=== PATIENT | female | born 1950 | race Caucasian/White ===

== ENCOUNTER 2016-11-25 20:00 | Emergency (ER) | payer MEDICARE, OTHER ==
[~2016-11-25] VITALS: Ht 172.7 cm; Wt 109.5 kg
[2016-11-25 20:04] VITALS: Ht 172.7 cm; Wt 109.5 kg
--- OUTSIDE RECORDS SUMMARY | 2016-11-25 20:05 | XMS REPORT ---
Author Author Bonifacio Cedillo Organization [employer] Address Unknown Phone Unavailable Care Team Providers Care Special Police Officer Name Role Phone Bonifacio Cedillo CP Unavailable Allergies No Known Allergies Problems Problem Type Condition ICD-9 Code Onset Dates Condition Status Problem Sleep Apnea 780.57 Active Problem Hypertension 401.9 Active Problem Murmur 785.2 Active Problem Diabetes Mellitus, Type II, Not Stated As Uncontrolled 250.00 Active Problem Atrial fibrillation 427.31 Active Problem Dyslipidemia 272.4 Active Medications No Known Medications Results No Known Results Summary Purpose [employer]Clinical[employer] Submission
--- OUTSIDE RECORDS SUMMARY | 2016-11-25 20:05 | XMS REPORT ---
Author Author Bonifacio Cedillo Organization [employer] Address Unknown Phone Unavailable Care Team Providers Care Recreation Worker Name Role Phone Bonifacio Cedillo CP Unavailable [...]
--- OUTSIDE RECORDS SUMMARY | 2016-11-25 20:05 | XMS REPORT ---
Author Author Bonifacio Cedillo Organization [employer] Address Unknown Phone Unavailable Care Team Providers Care Pharmaceutical Detailer Name Role Phone Bonifacio Cedillo CP Unavailable [...]
--- OUTSIDE RECORDS SUMMARY | 2016-11-25 20:05 | XMS REPORT | Continuity of Care Document ---
Author Author [facility] Organization [facility] Address Unknown Phone Unavailable Allergies Active Description Code Type Severity Reaction Onset Reported/Identified Relationship to Patient Clinical Status Yes Darvon Drug Allergy itch 04/24/2012 Yes Darvon Drug Allergy N/A itch 04/24/2012 Yes Nickel Drug Allergy rash 04/24/2012 Yes Nickel Drug Allergy N/A rash 04/24/2012 Medications Problems Date Dx Coded Attending Type Code Diagnosis Diagnosed By 04/24/2012 Andrew Albert MD Final 278.01 MORBID OBESITY 04/24/2012 Andrew Albert MD Final V72.63 PRE-PX LABORATORY EXAM 04/24/2012 Andrew Albert MD Final V72.81 PREOP CV EXAM 04/30/2012 Andrew Albert MD Final 250.01 DM1 UNCOMP NSU 04/30/2012 Andrew Albert MD Final 278.01 MORBID OBESITY 04/30/2012 Andrew Albert MD Final 327.23 OBSTRUCTIVE SLEEP APNEA 04/30/2012 Andrew Albert MD Final 401.9 HYPERTENSION NOS 04/30/2012 Andrew Albert MD Final 530.81 ESOPHAGEAL REFLUX 04/30/2012 Andrew Albert MD Final 998.11 HEMORRHAGE COMP PX 04/30/2012 Andrew Albert MD External E878.8 ABN RXN-SURGICAL PX NEC 04/30/2012 Andrew Albert MD Final V06.6 STREP PNEUM FLU VACC 04/30/2012 Andrew Albert MD Final V85.42 BMI 45.0-49.9 ADULT 01/10/2013 Jeffrey Soler DO Final 250.00 DM2/NOS UNCOMP NSU 01/10/2013 Jeffrey Soler DO Final 382.9 OTITIS MEDIA NOS 01/10/2013 Jeffrey Soler DO Final 401.9 HYPERTENSION NOS 01/10/2013 Jeffrey Soler DO Final 414.00 COR -GRAFT TYPE NOS 01/10/2013 Jeffrey Soler DO Final 465.9 ACUTE URI NOS 01/10/2013 Jeffrey Soler DO Final 473.9 CHRONIC SINUSITIS NOS 01/10/2013 Jeffrey Soler DO Admitting 786.2 COUGH Procedures Code Description Performed By Performed On 44.38 LAPSCP GASTROENTEROSTOMY Andrew Albert MD 04/30/2012 Results Encounters ACCT No. Visit Date/Time Discharge Status Pt. Type Provider Facility Loc./Unit Complaint [id number] 01/10/2013 11:05:00 2012 12:50:00 DIS Emergency Jeffrey Soler DO [facility] FERM [id number] 04/30/2012 05:10:00 2011 15:25:00 DIS Inpatient Andrew Albert MD [facility] F8SE [id number] 04/24/2012 08:57:00 2011 23:59:59 CLS Outpatient Andrew Albert MD [facility] FO
--- OUTSIDE RECORDS SUMMARY | 2016-11-25 20:05 | XMS REPORT ---
Author Bonifacio White [facility] [employer] Address Unknown Phone Unavailable Care Team Providers Care Assembly Loader Name Role Phone Bonifacio Cedillo CP Unavailable Allergies, Adverse Reactions, Alerts Substance Reaction Event Type Darvon Info Not Available Drug Allergy Problems Problem Type Condition ICD-9 Code Onset Dates Condition Status Assessment Diabetes Mellitus, Type II, Not Stated As Uncontrolled 250.00 Active Assessment Murmur 785.2 Active Assessment Dyslipidemia 272.4 Active Problem Sleep Apnea 780.57 Active Problem Hypertension 401.9 Active Problem Murmur 785.2 Active Problem Diabetes Mellitus, Type II, Not Stated As Uncontrolled 250.00 Active Assessment Atrial fibrillation 427.31 Active Problem Atrial fibrillation 427.31 Active Problem Dyslipidemia 272.4 Active Assessment Sleep Apnea 780.57 Active Assessment Hypertension 401.9 Active Assessment Long-term anticoagulant (Coumadin) therapy V58.63 Active Medications Medication Code System Code Instructions Start Date End Date Status Dosage multivitamin NDC 0 po bid 2 tab Insulin NDC 0 as dir as dir Sotalol HCl [facility] [address]-05 80 MG Orally bdid 1/2 [place] [address]-53 10 MG Orally qd 1 [place] [address]-46 75 MCG Orally qd 1 tablet Citracal + D NDC 0 qd 3 tabs Amlodipine Besy-Benazepril HCl [facility] [address]-84 5-20 MG Orally qd 1 [place] [address]-00 75-50 MG Orally qd 1/[address] [place] [address]-11 81 MG Orally Once a day January 12, 2015 1 tablet Procedures Procedure Coding System Code Date Office Visit, Est Pt., Level 4 CPT-4 88029 January 12, 2015 ELECTROCARDIOGRAM, COMPLETE CPT-4 51103 January 12, 2015 Vital Signs Date/Time: January 12, 2015 BMI 35.48 Index Weight 233.4 lbs Height 68 in Cardiac Monitoring Heart Rate 69 /min Oximetry 98%RA % Blood Pressure Diastolic 70 mm Hg Blood Pressure Systolic 124 mm Hg Results No Known Results Summary Purpose eClinicalWorks Submission
--- OUTSIDE RECORDS SUMMARY | 2016-11-25 20:05 | XMS REPORT ---
Author Author Bonifcaio Cedillo Organization [employer] Address Unknown Phone Unavailable Care Team Providers Care Nursing Admin Name Role Phone Bonifacio Cedillo CP Unavailable [...]
--- OUTSIDE RECORDS SUMMARY | 2016-11-25 20:05 | XMS REPORT ---
Author Author [place], [facility] - Organization Unknown Address Unknown Phone Unavailable Allergies, Adverse Reactions, Alerts * Nickel causes rash. * Darvon causes itch. * No Latex Allergy. * No IV Contrast Allergy. Problems * Acute Pain* Status:Active. * Deep Vein Thrombosis Risk* Status:Active. * Diabetes Mellitus* Status:Active. * Knowledge of Therapeutic Regimen Low Level* Status:Active. * Morbid Obesity* Status:Resolved. * Nutritional Assessment* Status:Active. * Skin Integrity Impairment* Status:Active. * Tissue Perfusion Impairment* Status:Resolved. * Urinary System Process Impairment* Status:Resolved. Procedures No relevant procedures performed. Medication Medication reconciliation has not been performed. Results LAB--BEDSIDE TESTING from 01/10/2013 11:21 AMGlucose NPT 203 mg/dL H (70-100 mg/ dL)
--- OUTSIDE RECORDS SUMMARY | 2016-11-25 20:05 | XMS REPORT ---
Author Author Bonifacio Cedillo [facility] e[employer] Address Unknown Phone Unavailable Care Team Providers Care Shrimp Peeler Name Role Phone Bonifacio Cedillo CP Unavailable Allergies, Adverse Reactions, Alerts Substance Reaction Event Type Sotalol HCl marked bradycardia Drug Allergy Darvon Info Not Available Drug Allergy Problems Problem Type Condition Code Onset Dates Condition Status Assessment Bradycardia R00.1 Active Problem Diabetes Mellitus, Type II, Not Stated As Uncontrolled 250.00 Active Assessment Hypertension I10 Active Assessment Sleep apnea in adult G47.33 Active Assessment Atrial fibrillation I48.91 Active Problem Bradycardia R00.1 Active Problem Atrial fibrillation I48.91 Active Problem Hypertension I10 Active Problem Hypertension 401.9 Active Problem Dyslipidemia 272.4 Active Problem Sleep apnea in adult G47.33 Active Problem Murmur 785.2 Active Medications Medication Code System Code Instructions Start Date End Date Status Dosage Aspirin [facility] [address]-40 81 MG Orally Once a day January 12, 2015 1 tablet multivitamin NDC 0 po bid 2 [place] [address] Orally bid 2 tabs Norvasc [facility] [address]-34 5 MG Orally Once a day Apr 19, 2015 1 [place] [address]-10 500-25 MG Orally prn 1 tab Insulin NDC 0 [place] dir [place] [address] Orally 2669mg qd 4 tabs Hair/[place] [address] Orally bid 1 [place] [address]-07 20-12.5 MG Orally bid 1 tab Citracal + D NDC 0 qd 3 [place] [address] Orally qd 2 [place] [address] 500 MG Orally qd 1 [place] [address]-56 25 MG Orally bid 1 tablet Levothroid NDC 0 75 MCG Orally bid 1/2 [place] [address]-89 750 MG Orally Once a day 1 tablet with evening meal Procedures Procedure Coding System Code Date Office Visit, Est Pt., Level 4 CPT-4 69766 Apr 15, 2015 Vital Signs Date/Time: Apr 15, 2015 BMI 36.03 Index Weight 237 lbs Height 68 in Cardiac Monitoring Heart Rate 77 /min Oximetry 97%RA % Blood Pressure Diastolic 80 mm Hg Blood Pressure Systolic 160 mm Hg Results No Known Results Summary Purpose eClinicalWorks Submission
--- OUTSIDE RECORDS SUMMARY | 2016-11-25 20:05 | XMS REPORT ---
Author Bonifacio White [facility] e[employer] Address Unknown Phone Unavailable Care Team Providers Care Pan Pusher Name Role Phone Bonifacio Cedillo CP Unavailable Allergies No Known Allergies Problems Problem Type Condition Code Onset Dates Condition Status Assessment Dyslipidemia 272.4 Active Assessment Hypertension 401.9 Active Assessment Murmur 785.2 Active Problem Sleep Apnea 780.57 Active Problem Hypertension 401.9 Active Problem Murmur 785.2 Active Problem Diabetes Mellitus, Type II, Not Stated As Uncontrolled 250.00 Active Assessment Atrial fibrillation 427.31 Active Problem Atrial fibrillation 427.31 Active Problem Dyslipidemia 272.4 Active Assessment Sleep Apnea 780.57 Active Assessment Long-term anticoagulant (Coumadin) therapy V58.63 Active Assessment Diabetes Mellitus, Type II, Not Stated As Uncontrolled 250.00 Active Medications Medication Code System Code Instructions Start Date End Date Status Dosage Aspirin [facility] [address]-09 81 MG Orally Once a day January 12, 2015 1 tablet Tylenol PM Extra Strength [facility] [address]-74 500-25 MG Orally prn 1 tab multivitamin NDC 0 po bid 2 tab Levothroid [facility] [address]-76 75 MCG Orally qd 1 [place] [address]-99 20-12.5 MG Orally Once a day 1 [place] [address] 500 MG Orally qd 1 [place] [address] [place] [address] Orally 2669mg qd not defined Insulin NDC 0 as dir [place] [address]-97 25 MG Orally Twice a day 1 tablet Citracal + D NDC 0 qd 3 [place] [address]-97 750 MG Orally Once a day 1 tablet with [place] [address] Orally qd 2 tablets Procedures Procedure Coding System Code Date Office Visit, Est Pt., Level 4 CPT-4 93648 Mar 02, 2015 ELECTROCARDIOGRAM, COMPLETE CPT-4 90898 Mar 02, 2015 Vital Signs Date/Time: Mar 02, 2015 BMI 36.34 Index Weight 239 lbs Height 68 in Cardiac Monitoring Heart Rate 54 /min Oximetry 99% % Blood Pressure Diastolic 90 mm Hg Blood Pressure Systolic 150 mm Hg Results No Known Results Summary Purpose eClinicalWorks Submission
--- OUTSIDE RECORDS SUMMARY | 2016-11-25 20:05 | XMS REPORT ---
Author Bonifacio White [facility] eClinicalWorks Address Unknown Phone Unavailable Care Team Providers Care Button Attaching Machine Operator Name Role Phone Bonifacio Cedillo CP Unavailable [...] Instructions Start Date End Date Status Dosage Hair/Skin/Nails [facility] [address] Orally bid 1 tab Glucosamine Chondroitin [facility] [address] Orally qd 2 tablets Metoprolol Tartrate [facility] [address]-20 25 MG Orally bid 1 [place] [address] 500 MG Orally qd 1 Bariatric Fusion [facility] [address] Orally bid 2 tabs Citracal + D NDC 0 qd 3 tabs MetFORMIN HCl ER [facility] [address]-00 750 MG Orally Once a day 1 tablet with evening meal Norvasc [facility] [address]-39 5 MG Orally Once a day Apr 19, 2015 1 tablet Aspirin [facility] [address]-41 81 MG Orally Once a day January 12, 2015 1 tablet Lisinopril-Hydrochlorothiazide [facility] [address]-58 20-12.5 MG Orally qday 2 tab Levothroid NDC 0 75 MCG Orally once a day 1 [place] [address] [place] [address] Orally 2669mg qd 4 [place] [address]-29 500-25 MG Orally prn 1 tab Insulin NDC 0 as dir as dir Procedures Procedure Coding System Code Date Office Visit, Est Pt., Level 4 CPT-4 17827 May 18, 2015 ELECTROCARDIOGRAM, COMPLETE CPT-4 40563 May 18, 2015 Vital Signs Date/Time: May 18, 2015 BMI 35.58 Index Weight 234 lbs Height 68 in Cardiac Monitoring Heart Rate 58 /min Oximetry 96% % Blood Pressure Diastolic 70 mm Hg Blood Pressure Systolic 140 mm Hg Results No Known Results Summary Purpose eClinicalWorks Submission
--- NOTE | 2016-11-25 20:13 | NUR ---
IV IV ATTEMPTS X2 UNSUCCESSFUL BY THIS RN
--- OUTSIDE RECORDS SUMMARY | 2016-11-25 20:22 | XMS REPORT ---
Author Author [place], [facility] - Organization Unknown Address Unknown [...]
--- OUTSIDE RECORDS SUMMARY | 2016-11-25 20:22 | XMS REPORT | Continuity of Care Document ---
Author Author [facility] Organization [facility] Address Unknown Phone Unavailable Allergies Active [...] Status Pt. Type Provider Facility Loc./Unit Complaint [id number] 01/10/2013 11:05:00 2012 12:50:00 DIS Emergency Jeffrey Soler DO [facility] FERM [id number] 04/30/2012 05:10:00 2011 15:25:00 DIS Inpatient Andrew Albert MD [facility] F8SE [id number] 04/24/2012 08:57:00 2011 23:59:59 CLS Outpatient Andrew Albert MD [facility] FO
[2016-11-25] MEDS ORDERED: NORMAL SALINE 1,000 ML IV ONE (20:24)
[2016-11-25] MEDS ORDERED: LEVO75TA10 PO (20:29)
[2016-11-25] MEDS ORDERED: METF750T2 PO (20:30)
[2016-11-25] MEDS ORDERED: ONDANSETRON 4mg/2ml INJECTION IV ONE (20:30)
[2016-11-25] MEDS ORDERED: [UNRECOGNIZED DRUG - CODE] PO (20:31)
[2016-11-25] MEDS ORDERED: METO-277 PO (20:31)
[2016-11-25] MEDS ORDERED: LISI1TAB11 PO (20:32)
[2016-11-25] MEDS ORDERED: [UNRECOGNIZED DRUG - OTHER] PO (20:33)
[2016-11-25] MEDS ORDERED: [UNRECOGNIZED DRUG - OTHER] PO (20:34)
[2016-11-25] MEDS ORDERED: INSU100V SQ (20:35)
[2016-11-25] MEDS ORDERED: OMEG1CAP82 PO (20:36)
[2016-11-25] MEDS ORDERED: GLUC-235 PO (20:37)
[2016-11-25] MEDS ORDERED: ASPI81TA2 PO (20:37)
[2016-11-25] MEDS ORDERED: INSU100V8 SQ (20:38)
[2016-11-25 20:40] LABS: ALBUMIN 3.7 G/DL (3.5-5.0); ALBUMIN/GLOBULIN RATIO 1.7 RATIO (1.1-2.2); ALKALINE PHOSPHATASE 74 U/L (38-126); ALT (SGPT) 38 U/L (9-52); ANION GAP 15 MEQ/L (5-15); AST (SGOT) 18 U/L (14-36); BUN/CREATININE RATIO 30 RATIO (6-26); CALCIUM 8.4 MG/DL (8.4-10.2); CHLORIDE 103 MEQ/L (98-107); CO2 - CARBON DIOXIDE 24 MEQ/L (22-30); CREATININE 0.9 MG/DL (0.7-1.2); GLOMERULAR FILTRATION RATE 62; GLUCOSE 310 MG/DL (65-110); LIPASE 25 U/L (23-300); POTASSIUM 3.7 MEQ/L (3.6-5); SODIUM 142 MEQ/L (134-144); TOTAL PROTEIN 5.9 G/DL (6.3-8.2)
[2016-11-25] MEDS ORDERED: [UNRECOGNIZED DRUG - CODE] BOTH EYES (20:40)
[2016-11-25] MEDS ORDERED: CA C1TAB98 PO (20:40)
[2016-11-25] MEDS ORDERED: CRAN500T PO (20:41)
[2016-11-25 20:55] LABS: HCT - HEMATOCRIT 43.2 % (36-46); HGB - HEMOGLOBIN 14.7 GM/DL (12-16); MEAN CORPUSCULAR HGB 30.3 UUG (26-34); MEAN CORPUSCULAR VOLUME 89.1 UM3 (80-100); MEAN PLATELET VOLUME 11.5 UM3 (9.4-12.4); RED BLOOD COUNT 4.85 M/MM3 (4.00-5.20); WBC - WHITE BLOOD COUNT 12.5 T/MM3 (4.5-11.0)
[2016-11-25 21:11] LABS: BAND NEUTROPHILS # 0.1 T/MM3; LYMPHOCYTES # (MANUAL) 0.8 T/MM3 (1-4.8); MONOCYTES # (MANUAL) 0.3 T/MM3 (0-0.8); NEUTROPHILS #(MANUAL)-ABSOLUTE 11.4 T/MM3 (1.8-7.7); TOTAL CELLS COUNTED 100 %
--- NOTE | 2016-11-25 21:25 | NUR ---
PROVIDER AT BEDSIDE
[2016-11-25] MEDS ORDERED: LISINOPRIL/HCTZ 20mg/25mg TABLET PO ONE (21:45)
[2016-11-25] MEDS ORDERED: METOPROLOL XL 50 MG TABLET PO ONE (21:45)
--- NOTE | 2016-11-25 22:34 | ERPDOC ---
Departure Disposition Decision Date: November 25, 2016 Disposition Decision Time: 22:38 Disposition: 01 DISCHARGED HOME, SELF-CARE Impression Impression Impression: Primary Impression: Toxic gastroenteritis Severity: Moderate Condition: Improved Seen By: Physician only Referrals: Sahra HOPE MD (Family) 1 Week Patient Instructions: Gastroenteritis (ED) Problems/Meds/Labs Reviewed?: Yes Medications reviewed and manag: Yes Additional Instructions: You have gastroenteritis (a stomach bug) caused by either a virus or a toxin in your food. Take naproxen or ibuprofen as needed for your pain. Drink lots of liquids, and take zofran as needed for nausea. Allow any diarrhea to take its course. Follow up with your doctor in the next few days. Follow up care ordered?: Yes Mental Status: Alert, Oriented HPI - Abdominal Pain General Chief Complaint: Nausea,Vomiting,Diarrhea Stated Complaint: DIARRHEA,FEVER Time Seen by Provider: 20:10 Source: patient History/Exam Limitations: no limitations HPI - Abdominal Pain Initial Comments 66yo woman presents to the ER tonight for diarrhea. Pt was helping out at her local food bank yesterday. They gave her an apple to eat, which she did, without washing it first. Within 6 hours of ingesting the apple, pt had reflux, abdominal cramping, and watery diarrhea. Pt took pepcid, pepto-bismol, and ibuprofen with relief of her abdominal pain, but without relief of the diarrhea. Pts sx stopped immediately after arriving in the ER. Occurred At: home Onset: Rapid Duration: 12-24 hrs Quality: cramping Location: generalized abdomen Radiation: no radiation Activities at Onset: during/after eating Modifying Factors: IMPROVES WITH: analgesics, antacids Associated Symptoms: heartburn Allergies: Coded Allergies: propoxyphene (Verified Allergy, Intermediate, RASH, 11/25/16) Past History Past Medical History Metabolic: diabetes, hypercholesterolemia, hypertension, hypothyroidism Cardiac: A-fib Musculoskeletal: osteoarthritis Psychological: depression Vaccines Hx Influenza Vaccination: No (FALL 2011) Hx Pneumococcal Vaccination: Yes (2010) Review of Systems GI Upper Abdomen: heartburn/indigestion, nausea, pain, DENIES: dysphagia, food intolerances, hematemesis, vomiting Lower Abdomen: diarrhea, pain, DENIES: blood in stool, raciel-colored stools, constipation, melena, painful BM All other Systems All Other Systems: Reviewed and Negative Physical Exam General General Nourishment: well nourished, well developed, appears stated age, no acute distress, adult, obese General Body Habitus: well groomed Vitals and Pain First Documented Vital Signs Date Time Temp Pulse Resp B/P Pulse Ox O2 Delivery O2 Flow Rate FiO2 11/25/16 20:04 98.2 89 22 201/88 96 Room Air Weight: Kilograms: 109.500 Height (feet): 5 Height (inches): 8.00 Triage Pain Scale: RN VS reviewed by Provider: Yes Normal Exams: Head: Normocephalic w/o trauma Eyes: Pupils are PERRLA w/ EOMI, No scleral icterus, irritation ENMT: No facial trauma, nasal exudates, pharyngeal erythema Neck: Full range of motion, without adenopathy, JVD Lymphatic: No lymphadenopathy Musculoskeletal: No tenderness, or deformity noted Integumentary: No rashes, hives, or bruising noted Neurologic: Patient is alert, and oriented Psychiatric: Patient exhibits, appropriate attention Respiratory (brief) Respiratory: FOUND: clear all [place], equal bilaterally, symmetrical, NOT FOUND : rales, wheezes Cardiovascular (brief) Cardiac: FOUND: murmur (Systolic), regular rate, regular rhythm, NOT FOUND: click, gallop, pedal edema, peripheral edema, rub Capillary Refill: <2 sec Pulses: all distal extremities, equal, strong Abdomen (brief) Abdominal Brief: FOUND: soft, NOT FOUND: bowel normo active x4 (Hyperactive), distended, hepatosplenomegaly, pulsatile mass, tender Differential Diagnoses Considering: Bowel Obstruction, Dehydration, DKA, Food Poisoning, Gastroenteritis, Hyponatremia, Hypokalemia, Hypoglycemia, Ingestion/Overdose, Rotavirus, Toxin Progress Results/Orders Orders Procedure Category Date Status Time Cmp - Comprehensive LAB 11/25/16 Complete Metabolic 20:24 Cbc W/Auto LAB 11/25/16 Complete Diff-Reflex Manual 20:24 Lipase LAB 11/25/16 Complete 20:24 Gi Panel, Pcr, Stool LAB 11/25/16 Logged 20:24 Kub W/Upright RAD 11/25/16 Taken 20:24 Iv Lock (Ed Only) EDM 11/25/16 Transmitted 20:24 Normal Saline (Normal PHA 11/25/16 Complete Saline Iv) 20:24 Ondansetron Inj PHA 11/25/16 Complete (Zofran) 20:30 Cdiff Tox B Pcr, LAB 11/25/16 Logged Only, Stool 20:24 Lisinopril/Hctz PHA 11/25/16 Complete (Prinzide ) 21:45 Metoprolol Xl (Toprol PHA 11/25/16 Complete Xl 50 Mg) 21:45 Hydralazine PHA 11/25/16 Complete (Apresoline) 22:30 Ondansetron Odt PHA 11/25/16 Complete (Prepack) (Zofran Odt 22:45 Lab Results Laboratory Tests Test 11/25/16 20:22 White Blood Count 12.5T/MM3 Red Blood Count 4.85M/MM3 Hemoglobin 14.7GM/DL Hematocrit 43.2% Mean Corpuscular Volume 89.1UM3 Mean Corpuscular Hemoglobin 30.3UUG Mean Corpuscular Hemoglobin Concent 34.0GM/DL RDW Standard Deviation 44.8FL Platelet Count 177T/MM3 Mean Platelet Volume 11.5UM3 Immature Granulocyte % (Auto) % Neutrophils (%) (Auto) % Lymphocytes (%) (Auto) % Monocytes (%) (Auto) % Eosinophils (%) (Auto) % Basophils (%) (Auto) % Absolute Immature Granulocyte (auto T/MM3 Absolute Neutrophils (auto) T/MM3 Absolute Lymphocytes (auto) T/MM3 Absolute Monocytes (auto) T/MM3 Absolute Eosinophils (auto) T/MM3 Absolute Basophils (auto) T/MM3 Neutrophils % (Manual) 91.0% Band Neutrophils % 1.0% Lymphocytes % (Manual) 6.0% Monocytes % (Manual) 2.0% Absolute Neutrophils (Manual) 11.4T/MM3 Band Neutrophils # 0.1T/MM3 Lymphocytes # (Manual) 0.8T/MM3 Monocytes # (Manual) 0.3T/MM3 Red Cell Morphology Comment Normal Turbidity < 20 Sodium Level 142MEQ/L Potassium Level 3.7MEQ/L Chloride Level 103MEQ/L Carbon Dioxide Level 24MEQ/L Anion Gap 15MEQ/L Blood Urea Nitrogen 27.0MG/DL Creatinine 0.9MG/DL Glomerular Filtration Rate Calc 62 BUN/Creatinine Ratio 30RATIO Glucose Level 310MG/DL Calculated Osmolality 290MOSM/KG Calcium Level 8.4MG/DL Total Bilirubin 0.80MG/DL Icterus Index < 2 Aspartate Amino Transf (AST/SGOT) 18U/L Alanine Aminotransferase (ALT/SGPT) 38U/L Alkaline Phosphatase 74U/L Total Protein 5.9G/DL Albumin 3.7G/DL Globulin 2.2G/DL Albumin/Globulin Ratio 1.7RATIO Lipase 25U/L Chemistry Specimen Hemolysis < 15 Medications Current ED Medications Sodium Chloride (Normal Saline IV) 1,000 ml @ 0 mls/hr Q0M ONCE IV Last administered on 11/25/16 20:37; Start 11/25/16 at 20:24; Stop 11/25/16 at 20:26 ; Status DC Ondansetron HCl (Zofran) 4 mg O ONCE IV Last administered on 11/25/16 20:37; Start 11/25/16 at 20:30; Stop 11/25/16 at 20:31; Status DC HCTZ/Lisinopril (Prinzide ) 1 tab O ONCE PO Last administered on 22:08; Start 11/25/16 at 21:45; Stop 11/25/16 at 21:46; Status DC Metoprolol Succinate (TOPROL XL 50 mg) 50 mg O ONCE PO Last administered on 22:08; Start 11/25/16 at 21:45; Stop 11/25/16 at 21:46; Status DC Hydralazine HCl (Apresoline) 10 mg O ONCE IV Last administered on 11/25/16 22 :32; Start 11/25/16 at 22:30; Stop 11/25/16 at 22:31; Status DC Ondansetron HCl (ZOFRAN ODT (PrePack)) 1 pack O ONCE SENT HOME ; Start at 22:45; Stop 11/25/16 at 22:46; Status DC Progress Progress Pt with toxic (likely) vs viral GE. Pt voiced understanding of dx, prognosis, tx , and f/u need. Pts BP is >200 systolic (70s diastolic) since admission. Did not take her PM antihypertensives (and likely did not absorb her AM meds). Will give routine home meds and observe bp. Slow down-trend of BP. Will give x1 dose of hydralazine to decrease BP. F/u with PCM. Xray Xray : Xray: KUB Upright Interpretation: Normal, Interpreted by Me ELIZABETH HEINEB M DO November 25, 2016 22:34
[2016-11-25] MEDS ORDERED: ONDANSETRON ODT 4mg #3 (PrePack) SENT HOME ONE (22:45)
[2016-11-25 23:41] VITALS: BP 188/77; PULSE 73; RESP 22; TEMP 98.2; O2SAT 95
--- NOTE | 2016-11-25 23:41 | NUR ---
DEPART PT GIVEN DI FOR GASTROENTERITIS. VERBALIZES UNDERSTANDING. QUESTIONS ASKED/ANSWERED - DENIES FURTHER QUESTIONS/NEEDS AT THIS TIME. PERSONAL BELONGINGS GATHERED. IV SITE REMOVED. PT ESCORTED/AMBULATED TO ED EXIT - GAIT STABLE, NO SIGN OF DISTRESS AT THIS TIME.
--- NOTE | 2016-11-27 12:05 | DI ---
Indication: ITS.REASON: diarrhea PROCEDURE: KUB W/UPRIGHT: Encounter: Initial Comparison: None Findings: The visualized lung bases are clear. There is no free air on the upright view. The bowel gas pattern is nonobstructive and nonspecific. Gas is seen in nondilated small and large bowel to the level of the rectum. Moderate stool is seen throughout the colon. The bony structures are grossly unremarkable. Postoperative changes in the area of the stomach. Impression: Nonobstructive nonspecific bowel gas pattern. .
== END 2016-11-25 23:41 | disposition home or self-care (01) ==
LOC: ED 20:00
DX: K52.1 Toxic gastroenteritis and colitis (principal); I10 Essential (primary) hypertension
CPT/HCPCS: 74020; 80053; 82948; 83690; 85025; 96361; 96374; 96375; 99284; A9270; J0360; J2405; J7030